=== PATIENT | male | born 1940 | race Caucasian/White ===

== ENCOUNTER 2017-08-19 00:04 | Observation (INO) | payer OTHER ==
[~2017-08-19] VITALS: Ht 177.8 cm; Wt 107.4 kg
[~2017-08-19 00:04] MED LIST: ALLEGRA ALLERG180 MG PO; ATORVASTATIN CA40 MG PO; DAILY VITE1 EAC1 PO; DIOVAN320 MG PO; KEFLEX500 MG PO; LO-DOSE ASPIRIN81 M1 PO; LOPRESSOR25 MG PO; NEXIUM 24HR20 M1 PO; TYLENOL EXTRA500 MG PO
[2017-08-19 00:49] LABS: HEMATOCRIT 44.4 % (38.0-50.0); HEMOGLOBIN 15.4 G/DL (12.5-16.6); MCH 30.6 PG (29.0-34.0); MCHC 34.7 G/DL (30.0-36.0); MCV 88.1 FL (86-99); PLATELET COUNT 199 K/uL (156-360); RBC DIS.WIDTH-CV 13.3 % (11.8-14.6); RED BLOOD COUNT 5.04 M/uL (4.00-5.50); WHITE BLOOD COUNT 9.5 K/uL (4.1-10.2)
[2017-08-19 01:01] LABS: CHLORIDE 104 mEq/L (99-109); SODIUM 139 mEq/L (136-147)
[2017-08-19 01:03] LABS: GLUCOSE 95 mg/dL (70-99)
[2017-08-19 01:07] LABS: CREATININE 0.9 mg/dL (0.6-1.3); GFR ESTIMATE (CALCULATED) > 59 mL/min/ (58.99-99999)
[2017-08-19 01:08] LABS: UREA NITROGEN (BUN) 27 mg/dL (9-23)
[2017-08-19 01:12] LABS: TROP-I INTERPRETATION NEGATIVE; TROPONIN-I < 0.01 ng/mL (0.0-0.30)
[2017-08-19 03:02] LABS: ALBUMIN 3.5 g/dL (3.2-4.8)
[2017-08-19 03:05] LABS: TOTAL PROTEIN 6.5 g/dL (6.4-8.3)
[2017-08-19 03:07] LABS: TOTAL BILIRUBIN 0.5 mg/dL (0.0-1.0)
[2017-08-19 03:08] LABS: ALKALINE PHOSPHATASE 132 IU/L (3-129)
[2017-08-19 03:10] LABS: AST (GOT) 17 IU/L (2-34); DIRECT BILIRUBIN 0.2 mg/dL (0.0-0.3)
[2017-08-19 03:11] LABS: ALT (GPT) 22 IU/L (3-49)
[2017-08-19 03:36] VITALS: BP 140/69
[2017-08-19 07:01] LABS: TROP-I INTERPRETATION NEGATIVE; TROPONIN-I 0.11 ng/mL (0.0-0.30)
[2017-08-19 07:12] LABS: HDL CHOLESTEROL 39 MG/DL (Desirable>=40); LDL CHOLESTEROL 82 mg/dL (Desirable<100); NON-HDL CHOLESTEROL 94 mg/dL (Desirable<160); TOTAL CHOLESTEROL 133 mg/dL (Desirable<200); TRIGLYCERIDES 62 MG/DL (Normal: <150)
[2017-08-19 09:16] VITALS: BP 136/65
[2017-08-19 12:41] VITALS: BP 147/70
[2017-08-19 13:23] LABS: TROP-I INTERPRETATION NEGATIVE; TROPONIN-I 0.19 ng/mL (0.0-0.30)
[2017-08-19] MEDS ORDERED: NITROGLYCERIN0.4 MG SL (13:32)
[2017-08-19 16:45] VITALS: BP 155/75
[2017-08-19 19:15] VITALS: BP 156/79
[2017-08-19 20:35] LABS: TROP-I INTERPRETATION NEGATIVE; TROPONIN-I 0.13 ng/mL (0.0-0.30)
[2017-08-19 23:25] VITALS: BP 134/73
[2017-08-20 01:01] LABS: TROP-I INTERPRETATION NEGATIVE
[2017-08-20 03:26] VITALS: BP 135/70
[2017-08-20 07:11] LABS: TROP-I INTERPRETATION NEGATIVE; TROPONIN-I 0.09 ng/mL (0.0-0.30)
[2017-08-20] MEDS ORDERED: NITROGLYCERIN0.4 MG SL (08:56)
== END 2017-08-20 09:52 | disposition home or self-care (01) ==
LOC: EME → EDBD 00:04 → EME 00:04 → 5WEST 02:10 → EDOF 02:10 → ENRESERV 02:11 → 5WEST 03:24
PROVIDERS: Emergency Medicine; Internal Medicine; Physician Assistant Medical
DX: R07.89 Other chest pain (principal); R10.11 Right upper quadrant pain; I25.10 Atherosclerotic heart disease of native coronary artery without angina pectoris; Z95.1 Presence of aortocoronary bypass graft; K21.9 Gastro-esophageal reflux disease without esophagitis; I10 Essential (primary) hypertension; E78.5 Hyperlipidemia, unspecified; Z87.19 Personal history of other diseases of the digestive system; J44.9 Chronic obstructive pulmonary disease, unspecified; K44.9 Diaphragmatic hernia without obstruction or gangrene; E66.9 Obesity, unspecified; I89.0 Lymphedema, not elsewhere classified; Z86.19 Personal history of other infectious and parasitic diseases; Z87.891 Personal history of nicotine dependence; Z82.3 Family history of stroke; Z82.49 Family history of ischemic heart disease and other diseases of the circulatory system; Z79.82 Long term (current) use of aspirin
CPT/HCPCS: 71045; 76705; 80048; 80061; 80076; 84484; 85027; 93005; 99281; 99285; G0378; J1644